=== PATIENT | female | born 2000 | race Caucasian/White ===

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

== ENCOUNTER 2023-12-28 16:57 | Emergency (ER) | payer OTHER | END 2023-12-28 19:28 | disposition still patient (30) | LOC: EMS 17:00 | DX: Z53.21 Procedure and treatment not carried out due to patient leaving prior to being seen by health care provider (principal) ==